=== PATIENT | female | born 1950 | race Hispanic/Latino ===

== ENCOUNTER 2017-12-08 13:18 | Outpatient (RCR) | payer BC | END 2018-01-02 | LOC: ST 13:18 | PROVIDERS: ATTEND Specialist | DX: R47.1 Dysarthria and anarthria (principal); R13.13 Dysphagia, pharyngeal phase | CPT/HCPCS: 92522 ==

== ENCOUNTER → 2018-07-24 | Day surgery (SDC) | payer MEDICARE ==
[~2018-07-24] MED LIST: AMLODIPINE BESY10 MG PO; ATORVASTATIN CA10 MG PO; ECOTRIN81 MG PO; FENTANYL CITRATE/PF 100MCG/2 ML INJ ONE; METFORMIN HCL500 MG PO; METOPROLOL SUCC50 MG PO; MIDAZOLAM HCL 2 MG/2 ML VIAL ONE; OR PHACO EYE KIT ONE; OS-CAL 500+D T1 EACH PO; PREOP PHACO EYE KIT ONE
--- OUTSIDE RECORDS SUMMARY | 2018-07-24 09:36 | XMS REPORT | Encounter Summary ---
Author Organization Unknown Address [address] [place] [address] Phone [phone] Care Team Providers Care Carton Machine Operator Name Role Phone Dr. Mary Gregg 3 [phone] Mary Gregg MD 3 [phone] Too Corona MD 82 [phone] Elijah Quinteros MD 110 [phone] Dangelo Wolfe MD 111 [phone] Dangelo Linares DPM 120 [phone] Stewart Monroy MD 129 [phone] Reason for Visit diabetic foot exam; pre-op evaluation Instructions 1. Pre-surgery evaluation electrocardiogram CBC w/ auto diff 2. Depression screening learning about depression 3. Screening mammography MAMMO, screening, digital, bilateral - PLEASE SCHEDULE & CONTACT OUR PATIENT. THANK YOU mammogram: about this test 4. Screening for malignant neoplasm of colon fecal occult blood, stool colonoscopy referral - Please schedule & contact our patient. thank you/FX RESULTS TO [phone] Thank you 5. Angina pectoris 6. Peripheral vascular disease 7. Type 2 diabetes mellitus 8. Depressive disorder Discussion Note: None recorded. Plan of Care Reminders Provider Appointments Est Patient 09/25/2018 8:15AM Nick Luis MD Lab Fecal Occult Blood, Stool 07/03/[address] [facility] Laboratory CBC W/ Auto Diff 07/03/[address] [facility] Laboratory Referral Colonoscopy Referral 07/03/2018 Ankit Saenz MD Procedures None recorded. Surgeries None recorded. Imaging MAMMO, Screening, Digital, Bilateral 07/03/2018 [facility] Electrocardiogram 07/03/[address] [facility] ([facility] [place] Medications Name Start Date amlodipine 10 mg tablet Take 1 tablet every day by oral route. atorvastatin 10 mg tablet TAKE 1 TABLET BY MOUTH EVERY DAY calcium TAKE ONE TABLET BY MOUTH ONCE A DAY Longs Adult Low Strength ASA 81 mg tablet,delayed release Take 1 tablet every day by oral route. metformin 500 mg tablet TAKE 1 TABLET BY MOUTH TWICE DAILY metoprolol succinate ER 50 mg tablet,extended release 24 hr Take 1 tablet every day by oral route. Medications Administered None recorded. Vitals Height Weight BMI Blood Pressure 5 ft 1 in 158.6 lbs 30 kg/m2 136/70 mm[Hg] Lab Results None recorded. Allergies Code Code System Name Reaction Severity Status Onset 2670 RxNorm Codeine Active 10/17/2017 Problems Name Status Onset Date Source Dural Arteriovenous Malformation Active 10/17/2017 External Type 2 Diabetes Mellitus Active 10/18/2017 External Essential Hypertension Active 10/18/2017 Depressive Disorder Active 11/13/2017 History of Cerebrovascular Accident Active 11/13/2017 Procedures Date Name Performed by 06/05/2010 Knee Surgery Information not available 06/05/1985 Partial Hysterectomy Information not available Other Information not available Tonsilectomy/adenoids Information not available 07/03/2018 MAMMO, Screening, Digital, Bilateral [facility] [address] [place] [address] ([facility]) 07/03/2018 Electrocardiogram [facility] ([facility]) [address] [address] ([address]) Vaccine List Vaccine Type influenza, high dose seasonal 04/03/20180.5 mL pneumococcal conjugate PCV 13 04/03/20180.5 mL Social History Smoking Status Never Smoker Past Encounters 07/03/2018 Pre-surgery Evaluation; Depression Screening; Screening Mammography; Screening for Malignant Neoplasm of Colon; Angina Pectoris; Peripheral Vascular Disease; Type 2 Diabetes Mellitus; Depressive Disorder Nick Luis MD: [id number] [place] [address], Ph. History of Present Illness Note:Coming for preoperative evaluation for bilateral cataract surgery. Hx of DM last a1c 6.7 (stable). No new concerns. Review of Systems Comprehensive General Adult ROS Reported By: Patient Constitutional: Constitutional: no fever, no night sweats, no significant weight gain, no significant weight loss, no exercise intolerance Eyes: Eyes: no dry eyes, no irritation, vision change ENMT: Ears: no difficulty hearing, no ear pain. Nose: no frequent nosebleeds, no nose problems, no sinus problems. Mouth/Throat: no sore throat, no bleeding gums, no snoring, no dry mouth, no mouth ulcers, no oral abnormalities, no teeth problems Cardiovascular: Cardiovascular: no chest pain, no arm pain on exertion, no shortness of breath when walking, no shortness of breath when lying down, no palpitations, no known heart murmur, no lightheadedness Respiratory: Respiratory: no cough, no wheezing, no shortness of breath, no coughing up blood, no sleep apnea Gastrointestinal: Gastrointestinal: no abdominal pain, no nausea, no vomiting, no constipation, normal appetite, no diarrhea, not vomiting blood, no dyspepsia, no GERD Genitourinary: Genitourinary: no incontinence, no difficulty urinating, no hematuria, no increased frequency Musculoskeletal: Musculoskeletal: no muscle aches, no muscle weakness, no arthralgias/joint pain, no back pain, no swelling in the extremities Integumentary: Skin: no abnormal mole, no jaundice, no rashes, no laceration Neurologic: Neurologic: no loss of consciousness, no weakness, no numbness, no seizures, no dizziness, no migraines, no headaches, no tremor Psychiatric: Psych: no depression, no sleep disturbances, feeling safe in a relationship, no alcohol abuse, no anxiety, no hallucinations, no suicidal thoughts Endocrine: Endocrine: no fatigue Hematologic/Lymphatic: Hematologic/Lymphatic no swollen glands, no bruising, no excessive bleeding Allergic/Immunologic: Allergy/Immunologic: no runny nose, no sinus pressure, no itching, no hives, no frequent sneezing Physical Exam General Adult Exam (male) Reported By: Patient Constitutional: General Appearance: healthy-appearing, obese. Level of Distress: NAD. Ambulation: ambulating normally Psychiatric: Insight: good judgement. Mental Status: active and alert, normal mood, normal affect. Orientation: to time, to place, to person. Memory: recent memory normal, remote memory normal Head: Head: normocephalic, atraumatic Eyes: Lids and Conjunctivae: non-injected, no discharge. Pupils: PERRLA. EOM: EOMI. Sclerae: non-icteric ENMT: Ears: TMs clear. Nose: no sinus tenderness. Lips, Teeth, and Gums: no mouth or lip ulcers. Oropharynx: moist mucous membranes Neck: Neck: supple, trachea midline. Thyroid: no enlargement, non-tender Lungs: Auscultation: breath sounds normal Cardiovascular: Heart Auscultation: RRR, normal S1, normal S2, no murmurs. Neck vessels: no carotid bruits. Pulses including femoral / pedal: normal throughout Neurologic: Gait and Station: normal gait. Cranial Nerves: grossly intact Skin: Inspection and palpation: no rash, no lesions
--- OUTSIDE RECORDS SUMMARY | 2018-07-24 09:36 | XMS REPORT | Clinical Summary ---
Author Author [facility] Organization [facility] Address Unknown Phone Unavailable Care Team Providers Care Systems Integration Engineer Name Role Phone DominguezRambo PCP Allergies Comments Active Allergy Reactions Severity Noted Date Heart beat changes Codeine 10/17/2017 Medications End Date Status Medication Sig Dispensed Refills Start Date Active amLODIPine (NORVASC) 10 amlodipine 10 0 mg tablet mg tablet Take 1 tablet every day by oral route. Active atorvastatin (LIPITOR) 10 atorvastatin 0 MG tablet 10 mg tablet TAKE 1 TABLET BY MOUTH EVERY DAY Active calcium carbonate TAKE ONE 0 (CALCIUM 500 ORAL) TABLET BY MOUTH ONCE A DAY Active metoprolol succinate XL Take 1 tablet 0 (TOPROL-XL) 50 mg 24 hr every day by tablet oral route. Active metFORMIN (GLUCOPHAGE) metformin 500 0 500 mg tablet mg tablet TAKE 1 TABLET BY MOUTH TWICE DAILY 10/17/2017 Discontinued amLODIPine (NORVASC) 10 Take 1 tablet 0 mg tablet every day by oral route. 10/17/2017 Discontinued atorvastatin (LIPITOR) 10 TAKE 1 TABLET 0 MG tablet BY MOUTH EVERY DAY 10/17/2017 Discontinued calcium carbonate calcium 0 (CALCIUM 500 ORAL) TAKE ONE TABLET BY MOUTH ONCE A DAY 10/17/2017 Discontinued metoprolol succinate XL metoprolol 0 (TOPROL-XL) 50 mg 24 hr succinate ER tablet 50 mg tablet,extend ed release 24 hr Take 1 tablet every day by oral route. 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 Encounters Care Team Description Date Type Specialty Jhon Carlton MD Bhardwaj, Emerson Hargrove MD Dural arteriovenous fistula (Primary Dx); Arteriovenous fistula, acquired; Type 2 diabetes mellitus with hyperglycemia, without long-term current use of insulin 10/17/2017 Hospital Neurosurgery - Encounter 10/19/2017 Morteza Ulrich MD C-C fistula 10/17/2017 Hospital Radiology Encounter Lalo Oliveira MD 10/17/2017 Anesthesia Radiology Event Jhon Carlton MD Arteriovenous fistula, acquired (Primary Dx) 10/17/2017 Transcribe Radiology Orders Rhea Stacy MD 10/13/2017 Anesthesia Radiology Event Morteza Ulrich MD 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 Hospital Radiology Encounter Morteza Ulrich MD Carotid-cavernous fistula (Primary Dx) 10/11/2017 Transcribe Radiology Orders Adeel Pike, DO Pain in right eye 10/06/2017 Hospital Radiology Encounter Adeel Pike, DO Pain in right eye (Primary Dx) 10/06/2017 Transcribe Access Orders after 07/23/2017 Social History Date Tobacco Use Types Packs/Day Years Used Never Smoker Smokeless Tobacco: Never Used Alcohol Use Drinks/Week oz/Week Comments Yes occasionally Sex Assigned at Date Recorded Not on file Industry Job Start Date Occupation Not on file Not on file Not on file Travel End Travel History Travel Start No recent travel history available. Last Filed Vital Signs Time Taken Vital Sign Reading 10/19/2017 12:39 PM CDT Blood Pressure 156/69 10/19/2017 12:39 PM CDT Pulse 58 10/19/2017 12:39 PM CDT Temperature 36.4 C (97.6 F) 10/19/2017 12:39 PM CDT Respiratory Rate 18 10/19/2017 12:39 PM CDT Oxygen Saturation 95% - Inhaled Oxygen - Concentration 10/17/2017 11:22 AM CDT Weight 76.2 kg (168 lb) 10/17/2017 11:22 AM CDT Height 154.9 cm (5' 1") 10/17/2017 11:22 AM CDT Body Mass Index 31.74 Plan of Treatment Health Maintenance Due Date Last Done Comments DIABETIC RETINAL EYE EXAM 1952 DIABETIC FOOT EXAM 1962 URINE MICROALBUMIN 1962 CERVICAL CANCER SCREENING 1973 BREAST CANCER SCREENING 2002 COLON CANCER SCREENING 2002 SHINGLES VACCINES (1 of 2002 2) PNEUMOCOCCAL 2017 POLYSACCHARIDE VACCINE AGE 65 AND OVER PNEUMOCOCCAL-13 2017 INFLUENZA VACCINE 01/03/2018 Implants Device Identifier Shelf Expiration Date Model / Serial / Lot Implanted Type Area Manufactur er 08/02/2018 [id number] / / [id number] Device Vasclr Clsr Vasoactive Cardiovasc N/A: N/A Intstnl Peptd 6fr Angio-Seal - ular [id number] Implants Implanted: 10/13/2017 (Quantity not on file) 08/02/2018 [id number] / / [id number] Device Vasclr Clsr Vasoactive Cardiovasc N/A: N/A Intstnl Peptd 6fr Angio-Seal - ular [id number] Implants Implanted: 10/17/2017 (Quantity not on file) [id number] / / Catheter Angio Dentistry Teacher Ii 5fr 100cm Surgical N/A: N/A [facility] [place] - Implants; PERIPHERAL [id number] Expanders; INTERVENTI Implanted: 10/13/2017 (Quantity not Extenders; ON on file) Surgical VASCULAR Wires FABIO [id number] / / Catheter Thrmbtmy Neuron Max 088 Surgical N/A: N/A PENUMBRA Str 6fr 80x4cm - [id number] Implants; INC Implanted: 10/17/2017 (Quantity not Expanders; on file) Extenders; Surgical Wires [id number] / / Catheter Angiography Diag Barnh Surgical N/A: N/A [facility] Torque Dentistry Teacher Ii 5fr 100cm - Implants; PERIPHERAL [id number] Expanders; INTERVENTI Implanted: 10/17/2017 (Quantity not Extenders; ON on file) Surgical VASCULAR Wires FABIO [id number] / / Catheter Neurvas [place] 10 1lmn Surgical N/A: N/A [employer] Renfrcd 2.1-1.7fr Micr - [id number] Implants; [place] - Implanted: 10/17/2017 (Quantity not Expanders; VASCULAR on file) Extenders; Surgical Wires FC 12 30 3D / / Coil Axium [id number] Detachable Vascular N/A: N/A [employer] (Frame) 12 X 30 - [id number] Coil [place] - Implanted: 10/17/2017 (Quantity not VASCULAR on file) FC 10 40 3D / / Coil Axium [id number] Detachable Vascular N/A: N/A [employer] (Frame) 10 X 40 - [id number] Coil [place] - Implanted: 10/17/2017 (Quantity not VASCULAR on file) Procedures Comments Procedure Name Priority Date/Time Associated Diagnosis POC GLUCOSE Routine 10/19/2017 1:44 PM CDT POC GLUCOSE Routine 10/19/2017 7:39 AM CDT POC GLUCOSE Routine 10/19/2017 12:13 AM CDT POC GLUCOSE Routine 10/18/2017 7:33 PM CDT POC GLUCOSE Routine 10/18/2017 3:38 PM CDT POC GLUCOSE Routine 10/18/2017 11:34 AM CDT POC GLUCOSE Routine 10/18/2017 7:25 AM CDT POC GLUCOSE Routine 10/18/2017 4:35 AM CDT ZZESTIMATED GFR Routine 10/18/2017 12:44 AM CDT IONIZED CALCIUM Routine 10/18/2017 12:44 AM CDT BASIC METABOLIC PANEL Routine 10/18/2017 12:44 AM CDT PHOSPHORUS LEVEL Routine 10/18/2017 12:44 AM CDT MAGNESIUM LEVEL Routine 10/18/2017 12:44 AM CDT HC COMPLETE BLD COUNT Routine 10/18/2017 W/AUTO DIFF 12:35 AM CDT POC GLUCOSE Routine 10/18/2017 12:04 AM CDT POC GLUCOSE Routine 10/17/2017 10:35 PM CDT POC GLUCOSE Routine 10/17/2017 8:53 PM CDT IR ANGIOGRAM CEREBRAL Routine 10/17/2017 C-C fistula RIGHT 4:41 PM CDT IR 3D RECON SLICES Routine 10/17/2017 SNAPSHOTS RDMPS 4:40 PM CDT IR EMBOLIZATION ARTERIAL Routine 10/17/2017 Arteriovenous fistula, NEURO 4:40 PM CDT acquired ARTERIAL LINE Routine 10/17/2017 1:30 PM CDT Procedure Note - Lalo Oliveira MD - 10/17/2017 1:30 PM CDT Arterial line Performed by: LALO OLIVEIRA Authorized by: LALO OLIVEIRA Patient Location: OR Start Time: 10/17/2017 1:30 PM End Time: 10/17/2017 1:30 PM Staff: Hectoro kenia: LALO OLIVEIRA Performed by: Jaycob aquino Pre-proced ure: patient identified , IV checked, site and side verified, risks and benefits discussed, procedure verified, surgical consent complete, patient position confirmed, monitors and equipment checked and pre-op evaluation complete MSBT: antiseptic used, all elements of maximal sterile barrier technique followed, hand hygiene performed, cap/gown used by other personnel and solutions labeled Indication s: Indication s: hemodynami c monitoring Anesthesia : Anesthesia : General Procedure Details: Arterial Line placement: Placed post induction Line placement site: Radial Line placement side: Left Arterial line gauge: 20 G Number of attempts: 1 Ultrasound guidance used: No Post-proce dure: Post-proce dure: Sterile dressing applied Post procedure circulatio n, sensation, movement: Normal Patient tolerance: Patient tolerated the procedure well with no immediate complicati ons GA AN ELECTIVE Routine 10/17/2017 ENDOTRACHEAL AIRWAY 1:29 PM CDT Procedure Note - Lalo Oliveira MD - 10/17/2017 1:29 PM CDT Airway Date/Time: 10/17/2017 1:29 PM Performed by: LALO OLIVEIRA Authorized by: LALO OLIVEIRA Location: OR Urgency: Elective Difficult Airway: No Anesthesio logist: LALO OLIVEIRA Performed by: anesthesimikala aquino Preoxygena ludivina with 100% O2: Yes C-spine Precaution s Maintained Throughout : Yes Mask Ventilatio n: Easy mask Final Airway Type: Endotrache al airway Final Endotrache al Airway: ETT Cuffed: Yes Technique Used: Direct laryngosco py Devices/Me thods Used in Placement: Intubatin g stylet Insertion Site: Oral Blade Type: Servin Laryngosco pe Blade/Vide olaryngosc ope Blade Size: 2 ETT Size (mm): 7.0 Cuff at minimum occlusion pressure: Yes Measured from: Teeth ETT to Teeth (cm): 21 Placement Verified by: CO2 detection, direct visualizat ion and equal breath sounds Laryngosco pic view: Grade I - full view of glottis Rapid Sequence Induction (RSI): No Modified RSI: No Number of Attempts at Approach: 1 TOOTH PROTECTOR. DENTITION UNCHANGED. POC GLUCOSE Routine 10/17/2017 10:46 AM CDT POC GLUCOSE Routine 10/13/2017 1:02 PM CDT IR 3D RECON SLICES Routine 10/13/2017 SNAPSHOTS RDMPS 12:55 PM CDT IR ANGIOGRAM CEREBRAL Routine 10/13/2017 Carotid-cavernous fistula BILATERAL 12:55 PM CDT GA AN ELECTIVE Routine 10/13/2017 ENDOTRACHEAL AIRWAY 11:35 AM CDT Procedure Note - Rhea Stacy MD - 10/13/2017 11:35 AM CDT Airway Date/Time: 10/13/2017 11:26 AM Performed by: RHEA STACY Authorized by: RHEA STACY Location: OR Urgency: Elective Difficult Airway: No Preoxygena ludivina with 100% O2: Yes C-spine Precaution s Maintained Throughout : Yes Mask Ventilatio n: Assisted mask Final Airway Type: Endotrache al airway Final Endotrache al Airway: ETT Cuffed: Yes Technique Used: Direct laryngosco py Devices/Me thods Used in Placement: Intubatin g stylet Insertion Site: Oral Blade Type: Servin Laryngosco pe Blade/Vide olaryngosc ope Blade Size: 2 ETT Size (mm): 7.0 Cuff at minimum occlusion pressure: Yes Measured from: Lips ETT to Lips (cm): 23 Placement Verified by: CO2 detection, direct visualizat ion and equal breath sounds Laryngosco pic view: Grade IIa - partial view of glottis Rapid Sequence Induction (RSI): No Modified RSI: No Number of Attempts at Approach: 1 POC GLUCOSE Routine 10/13/2017 9:[address] ANGIOGRAM HEAD W WO Routine 10/06/2017 Pain in right eye CONTRAST 6:00 PM CDT POC CREATININE Routine 10/06/2017 5:33 PM CDT after 07/23/2017 Results * POC glucose (10/19/2017 1:44 PM CDT) Only the most recent of 14 results within the time period is included. POC glucose 152 (H) 65 - 99 mg/dL [facility] DEPARTMENT OF Comment: [facility] Notified RN GENOMIC MEDICINE Meter ID: [id number] Clerk Of Superior Court: Jennifer Berry Performing Organization Address [facility] Phone Number [facility] [place] [address] PATHOLOGY AND GENOMIC MEDICINE * Estimated GFR (10/18/2017 12:44 AM CDT) GFR Non Af Amer >90 mL/min/1.73 m2 [facility] DEPARTMENT OF PATHOLOGY AND GENOMIC MEDICINE GFR Af Amer >90 mL/min/1.73 m2 [facility] DEPARTMENT OF Comment: PATHOLOGY AND Chronic kidney disease: <60 GENOMIC MEDICINE mL/min/1.73m2 Kidney failure: <15 mL/min/1.73m2 The estimated GFR is calculated from the IDMS-traceable Modification of Diet in Renal Disease Equation. The accuracy of the calculation is poor when the creatinine is normal. Calculated values >90 mL/min/1.73m2 are not reported. This equation has not been validated in children (<18 years), women, the elderly (>70 years), or ethnic groups other than Caucasians and Americans. Specimen Plasma specimen Performing Organization Address [facility] Phone Number [facility] DEPARTMENT OF [address] [place] [address] PATHOLOGY AND [employer] MEDICINE * Phosphorus level (10/18/2017 12:44 AM CDT) Phosphorus 3.2 2.4 - 4.5 mg/dL [facility] DEPARTMENT OF PATHOLOGY AND GENOMIC MEDICINE Specimen Plasma specimen Performing Organization Address City/[facility] [place] [address] PATHOLOGY AND GENOMIC MEDICINE * Magnesium level (10/18/2017 12:44 AM CDT) Magnesium 1.8 1.6 - 2.4 mg/dL [facility] DEPARTMENT OF PATHOLOGY AND GENOMIC MEDICINE Specimen Plasma specimen Performing Organization Address [facility] [place] [address] PATHOLOGY AND GENOMIC MEDICINE * Ionized calcium (10/18/2017 12:44 AM CDT) pH 7.62 [facility] DEPARTMENT OF PATHOLOGY AND GENOMIC MEDICINE Ionized calcium 1.06 (L) 1.11 - 1.32 mmol/L [facility] DEPARTMENT OF PATHOLOGY AND GENOMIC MEDICINE Specimen Plasma specimen Performing Organization Address [facility] [place] [address] PATHOLOGY AND GENOMIC MEDICINE * Basic metabolic panel (10/18/2017 12:44 AM CDT) Sodium 140 135 - 148 mEq/L [facility] DEPARTMENT OF PATHOLOGY AND GENOMIC MEDICINE Potassium 3.6 3.5 - 5.0 mEq/L [facility] DEPARTMENT OF PATHOLOGY AND GENOMIC MEDICINE Chloride 105 98 - 112 mEq/L [facility] DEPARTMENT OF PATHOLOGY AND GENOMIC MEDICINE CO2 21 (L) 24 - 31 mEq/L [facility] DEPARTMENT OF PATHOLOGY AND GENOMIC MEDICINE Anion gap 14@ANIO 7 - 15 mEq/L [facility] DEPARTMENT OF PATHOLOGY AND GENOMIC MEDICINE BUN 6 (L) 8 - 23 mg/dL [facility] DEPARTMENT OF PATHOLOGY AND GENOMIC MEDICINE Creatinine 0.5 0.5 - 0.9 mg/dL [facility] DEPARTMENT OF PATHOLOGY AND GENOMIC MEDICINE Glucose 203 (H) 65 - 99 mg/dL [facility] DEPARTMENT OF PATHOLOGY AND GENOMIC MEDICINE Calcium 8.5 (L) 8.8 - 10.2 mg/dL [facility] DEPARTMENT OF PATHOLOGY AND GENOMIC MEDICINE Specimen Plasma specimen Performing Organization Address [facility] [place] [address] PATHOLOGY AND GENOMIC MEDICINE * CBC with platelet and differential (10/18/2017 12:35 AM CDT) WBC 9.59 4.50 - 11.00 k/uL [facility] DEPARTMENT OF PATHOLOGY AND GENOMIC MEDICINE RBC 4.74 4.20 - 5.50 m/uL [facility] DEPARTMENT OF PATHOLOGY AND GENOMIC MEDICINE HGB 13.8 12.0 - 16.0 g/dL [facility] DEPARTMENT OF PATHOLOGY AND GENOMIC MEDICINE HCT 40.8 37.0 - 47.0 % [facility] DEPARTMENT OF PATHOLOGY AND GENOMIC MEDICINE MCV 86.1 82.0 - 100.0 fL [facility] DEPARTMENT OF PATHOLOGY AND GENOMIC MEDICINE MCH 29.1 27.0 - 34.0 pg [facility] DEPARTMENT OF PATHOLOGY AND GENOMIC MEDICINE MCHC 33.8 31.0 - 37.0 g/dL [facility] DEPARTMENT OF PATHOLOGY AND GENOMIC MEDICINE RDW - SD 41.1 37.0 - 55.0 fL [facility] DEPARTMENT OF PATHOLOGY AND GENOMIC MEDICINE MPV 10.1 8.8 - 13.2 fL [facility] DEPARTMENT OF PATHOLOGY AND GENOMIC MEDICINE Platelet count 247 150 - 400 k/uL [facility] DEPARTMENT OF PATHOLOGY AND GENOMIC MEDICINE Nucleated RBC 0.00 /100 WBC [facility] DEPARTMENT OF PATHOLOGY AND GENOMIC MEDICINE Neutrophils 92.3 (H) 39.0 - 69.0 % [facility] DEPARTMENT OF PATHOLOGY AND GENOMIC MEDICINE Lymphocytes 6.8 (L) 25.0 - 45.0 % [facility] DEPARTMENT OF PATHOLOGY AND GENOMIC MEDICINE Monocytes 0.4 0.0 - 10.0 % [facility] DEPARTMENT OF PATHOLOGY AND GENOMIC MEDICINE Eosinophils 0.0 0.0 - 5.0 % [facility] DEPARTMENT OF PATHOLOGY AND GENOMIC MEDICINE Basophils 0.1 0.0 - 1.0 % [facility] DEPARTMENT OF PATHOLOGY AND GENOMIC MEDICINE Immature granulocytes 0.4Comment: "Immature 0.0 - 1.0 % [facility] DEPARTMENT OF granulocytes" (promyelocytes, PATHOLOGY AND myelocytes, metamyelocytes) [facility] Specimen Blood Performing Organization Address City/State/Zipcode Phone Number [facility] DEPARTMENT OF [address] [place] [address] PATHOLOGY AND GENOMIC MEDICINE * IR Angiogram Cerebral Right (10/17/2017 4:41 PM CDT) Narrative Performed At CEREBRAL DIGITAL SUBTRACTION ANGIOGRAPHY (DSA) RADIANT RADIATION EXPOSURE: 5,844 mGy (total radiation exposure for diagnostic and embolization procedures). COMPARISON: Brain CTA dated October 06, 2017; diagnostic cerebral DSA October 13, 2017. CLINICAL HISTORY: 66-year-old female with right ocular pain, proptosis and chemosis. Patient underwent brain CTA on October 06, 2017, showing asymmetric enlargement of the superior ophthalmic vein on the right side and asymmetric filling of the right cavernous sinus. The patient underwent diagnostic cerebral angiography on October 13, 2017. The patient is here today for embolization. TECHNIQUE: The risk and benefits of the procedure were carefully discussed with and explained to the patient. The risks of the procedure include, but are not limited to, infection, hematoma, damage to any catheterized vessel, renal failure, stroke, worsening of the patient's neurological condition and contrast reaction. Informed consent was obtained. Under general anesthesia provided by the Anesthesiology service and utilizing a left femoral percutaneous approach, using micropuncture technique, the following procedures were performed: 1. Right common carotid artery injection, neck examination, in biplane projections. 2. Selective right internal carotid injection, cerebral examination, in biplane, obliques and magnification views. 3. Selective right external carotid injection, cerebral examination, in biplane projections. 4. Selective injection of the right occipital artery in biplane projections. 5. Selective injection of the right ascending pharyngeal artery, in biplane projections. 6. Rotational angiography (Cyndi CT) with selective injection of the right ascending pharyngeal artery, followed by 3-D and multiplanar reconstructions using a separate, dedicated workstation. 7. Rotational angiography (3D imaging) with selective injection of the right ascending pharyngeal artery, followed by 3-D and multiplanar reconstructions using a separate, dedicated workstation. FINDINGS: 1. Selective right common carotid injection, neck examination, shows a patent carotid bifurcation, without focal stenosis. There is a dural AV fistula supplied by the neuromeningeal trunk of the ascending pharyngeal artery. The shunt is located in the right hypoglossal canal. There is retrograde filling of the right sphenoparietal sinus, cavernous sinus and superior ophthalmic vein. 2. Selective right internal carotid injection, cerebral examination, shows normal antegrade flow intracranially into the anterior and middle cerebral arteries. There is some cross-filling through the anterior communicating artery. No arteriovenous shunting is seen in this injection. No aneurysm or focal stenosis is identified.The venous phase is within normal limits. 3. Selective right external carotid injection, head examination, with the tip of the catheter just distal to the takeoff of the ascending pharyngeal artery, shows faint opacification of the dural AV fistula, as well as retrograde filling of the sphenoparietal sinus, cavernous sinus and superior ophthalmic vein. 4. Selective right occipital artery injection, head examination, shows small contribution to the AV fistula by transmastoid branches of the occipital artery. 5. Selective injection of the right ascending pharyngeal artery, head examination, centered over the skull base, shows a dural AV fistula supplied by branches of the neural meningeal trunk, centered in the hypoglossal canal, with retrograde filling of the sphenoparietal sinus, cavernous sinus, superior ophthalmic vein and orbital vein on the right side. The fistulous pouch measures approximately 9 mm in height x 14 mm in AP diameter. 6. Cyndi CT was performed with selective injection of the right ascending pharyngeal artery. Reconstructed images show the fistulous pouch located within the right hypoglossal canal. The images obtained from the Cyndi CT were used to delineate the venous anatomy in this region, for catheter navigation. 7. 3D imaging was also performed with selective injection of the right ascending pharyngeal artery. The reconstructed images depict in better detail the venous anatomy in the region of the right hypoglossal canal. Following the diagnostic portion of the examination, which was used for operative/embolization planning, the embolization procedure was commenced. This is dictated under a separate report. IMPRESSION: 1. 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 2. No immediate complications were encountered. [facility]-[id number] Procedure Note [facility], Radiology Results Incoming - 10/17/2017 5:56 PM CDT CEREBRAL DIGITAL SUBTRACTION ANGIOGRAPHY (DSA) RADIATION EXPOSURE: 5,844 mGy (total radiation exposure for diagnostic and embolization procedures). COMPARISON: Brain CTA dated October 06, 2017; diagnostic cerebral DSA October 13, 2017. CLINICAL HISTORY: 66-year-old female with right ocular pain, proptosis and chemosis. Patient underwent brain CTA on October 06, 2017, showing asymmetric enlargement of the superior ophthalmic vein on the right side and asymmetric filling of the right cavernous sinus. The patient underwent diagnostic cerebral angiography on October 13, 2017. The patient is here today for embolization. TECHNIQUE: The risk and benefits of the procedure were carefully discussed with and explained to the patient. The risks of the procedure include, but are not limited to, infection, hematoma, damage to any catheterized vessel, renal failure, stroke, worsening of the patient's neurological condition and contrast reaction. Informed consent was obtained. Under general anesthesia provided by the Anesthesiology service and utilizing a left femoral percutaneous approach, using micropuncture technique, the following procedures were performed: 1. Right common carotid artery injection, neck examination, in biplane projections. 2. Selective right internal carotid injection, cerebral examination, in biplane, obliques and magnification views. 3. Selective right external carotid injection, cerebral examination, in biplane projections. 4. Selective injection of the right occipital artery in biplane projections. 5. Selective injection of the right ascending pharyngeal artery, in biplane projections. 6. Rotational angiography (Cyndi CT) with selective injection of the right ascending pharyngeal artery, followed by 3-D and multiplanar reconstructions using a separate, dedicated workstation. 7. Rotational angiography (3D imaging) with selective injection of the right ascending pharyngeal artery, followed by 3-D and multiplanar reconstructions using a separate, dedicated workstation. FINDINGS: 1. Selective right common carotid injection, neck examination, shows a patent carotid bifurcation, without focal stenosis. There is a dural AV fistula supplied by the neuromeningeal trunk of the ascending pharyngeal artery. The shunt is located in the right hypoglossal canal. There is retrograde filling of the right sphenoparietal sinus, cavernous sinus and superior ophthalmic vein. 2. Selective right internal carotid injection, cerebral examination, shows normal antegrade flow intracranially into the anterior and middle cerebral arteries. There is some cross-filling through the anterior communicating artery. No arteriovenous shunting is seen in this injection. No aneurysm or focal stenosis is identified. The venous phase is within normal limits. 3. Selective right external carotid injection, head examination, with the tip of the catheter just distal to the takeoff of the ascending pharyngeal artery, shows faint opacification of the dural AV fistula, as well as retrograde filling of the sphenoparietal sinus, cavernous sinus and superior ophthalmic vein. 4. Selective right occipital artery injection, head examination, shows small contribution to the AV fistula by transmastoid branches of the occipital artery. 5. Selective injection of the right ascending pharyngeal artery, head examination, centered over the skull base, shows a dural AV fistula supplied by branches of the neural meningeal trunk, centered in the hypoglossal canal, with retrograde filling of the sphenoparietal sinus, cavernous sinus, superior ophthalmic vein and orbital vein on the right side. The fistulous pouch measures approximately 9 mm in height x 14 mm in AP diameter. 6. Cyndi CT was performed with selective injection of the right ascending pharyngeal artery. Reconstructed images show the fistulous pouch located within the right hypoglossal canal. The images obtained from the Cyndi CT were used to delineate the venous anatomy in this region, for catheter navigation. 7. 3D imaging was also performed with selective injection of the right ascending pharyngeal artery. The reconstructed images depict in better detail the venous anatomy in the region of the right hypoglossal canal. Following the diagnostic portion of the examination, which was used for operative/embolization planning, the embolization procedure was commenced. This is dictated under a separate report. IMPRESSION: 1. 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 2. No immediate complications were encountered. [id number] Performing Organization Address City/[facility] Cent[facility]ode Phone Number [facility] [address] [place] [address] * IR 3D Recon Slices Snapshots RDMPS (10/17/2017 4:40 PM CDT) Only the most recent of 2 results within the time period is included. Narrative Performed At Non-Reportable/No report needed. [facility] Performing Organization Address City/[facility] Cent[facility]ome Phone Number [facility] [address] [place] [address] * IR Embolization Neurovascular (10/17/2017 4:40 PM CDT) Narrative Performed At EXAMINATION: Embolization OF A right hypoglossal canal Dural arteriovenous [facility] fistula. 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 The patient is here for endovascular treatment after diagnostic cerebral angiogram performed by Dr. Henrique Archer. RADIATION EXPOSURE: 5,844 mGy (total radiation exposure for diagnostic and embolization procedures). COMPARISON: Brain CTA dated October 06, 2017; diagnostic cerebral DSA October 13, 2017. CLINICAL HISTORY: 66-year-old female with right ocular pain, proptosis and chemosis. Patient underwent brain CTA on October 06, 2017, showing asymmetric enlargement of the superior ophthalmic vein on the right side and asymmetric filling of the right cavernous sinus. The patient underwent diagnostic cerebral angiography on October 13, 2017. The patient is here today for embolization. TECHNIQUE: The risk and benefits of the procedure were carefully discussed with and explained to the patient. The risks of the procedure include, but are not limited to, infection, hematoma, damage to any catheterized vessel, renal failure, stroke, worsening of the patient's neurological condition and contrast reaction. Informed consent was obtained. Under general anesthesia provided by the Anesthesiology service and utilizing a left femoral percutaneous approach, using micropuncture technique, after the diagnostic arteriogram performed by Dr. Henrique Archer utilizing a right jugular percutaneous approach the following procedureswere performed. 1. Successful endovascular treatment of the right hypoglossal canal dural arteriovenous fistula using transvenous approach and coils and [place] embolization material. 2. Posttreatment Selective right internal carotid injection, cerebral examination, in biplane, obliques and magnification views. 3. Posttreatment Selective right external carotid injection, cerebral examination, in biplane projections. 4. Posttreatment left internal carotid indication headache examination in the AP and oblique some indications views. 5. Post treatment left external carotid injection] hepatopedal examination in biplane obliques and magnification views. 6. Post treatment right vertebral artery injection. Examination with been no recent medications use. 7. Post treatment left vertebral artery injection. Examination with been no recent medications use. 8. Post treatment Rotational angiography (Cyndi CT) without contrast. FINDINGS: After Demonstration of the right hypoglossal canal dural arteriovenous fistula and utilizing a right jugular venousapproach an [place] 10 microcatheter was navigated into the right hypoglossal canal. Cyndi CT with contrast demonstrated correct position of the microcatheter. Subsequently multiple axial coils and [place] 34 embolization material were utilized to completelydevascularize the hypoglossal dural fistula without complications. The posttreatment bilateral internal carotid injection, bilaterally external carotid andbilateral vertebral artery injection head examination demonstrate complete devascularization of the hypoglossal canal dural AVF without residual arteriovenous shunting. The posttreatment diagnostic CT head examination demonstrated only subluxation material at the level of the hypoglossal canal. IMPRESSION: 1. 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 2. Follow-up cerebral arch UM in 6 months is recommended. 3. No complications. [id number] Procedure Note [facility], Radiology Results Incoming - 10/18/2017 5:47 PM CDT EXAMINATION: Embolization OF A right hypoglossal canal Dural arteriovenous fistula. 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 The patient is here for endovascular treatment after diagnostic cerebral angiogram performed by Dr. Henrique Archer. RADIATION EXPOSURE: 5,844 mGy (total radiation exposure for diagnostic and embolization procedures). COMPARISON: Brain CTA dated October 06, 2017; diagnostic cerebral DSA October 13, 2017. CLINICAL HISTORY: 66-year-old female with right ocular pain, proptosis and chemosis. Patient underwent brain CTA on October 06, 2017, showing asymmetric enlargement of the superior ophthalmic vein on the right side and asymmetric filling of the right cavernous sinus. The patient underwent diagnostic cerebral angiography on October 13, 2017. The patient is here today for embolization. TECHNIQUE: The risk and benefits of the procedure were carefully discussed with and explained to the patient. The risks of the procedure include, but are not limited to, infection, hematoma, damage to any catheterized vessel, renal failure, stroke, worsening of the patient's neurological condition and contrast reaction. Informed consent was obtained. Under general anesthesia provided by the Anesthesiology service and utilizing a left femoral percutaneous approach, using micropuncture technique, after the diagnostic arteriogram performed by Dr. Henrique Archer utilizing a right jugular percutaneous approach the following procedures were performed. 1. Successful endovascular treatment of the right hypoglossal canal dural arteriovenous fistula using transvenous approach and coils and [place] embolization material. 2. Posttreatment Selective right internal carotid injection, cerebral examination, in biplane, obliques and magnification views. 3. Posttreatment Selective right external carotid injection, cerebral examination, in biplane projections. 4. Posttreatment left internal carotid indication headache examination in the AP and oblique some indications views. 5. Post treatment left external carotid injection] hepatopedal examination in biplane obliques and magnification views. 6. Post treatment right vertebral artery injection. Examination with been no recent medications use. 7. Post treatment left vertebral artery injection. Examination with been no recent medications use. 8. Post treatment Rotational angiography (Cyndi CT) without contrast. FINDINGS: After Demonstration of the right hypoglossal canal dural arteriovenous fistula and utilizing a right jugular venous approach an [place] 10 microcatheter was navigated into the right hypoglossal canal. Cyndi CT with contrast demonstrated correct position of the microcatheter. Subsequently multiple axial coils and [place] 34 embolization material were utilized to completely devascularize the hypoglossal dural fistula without complications. The posttreatment bilateral internal carotid injection, bilaterally external carotid and bilateral vertebral artery injection head examination demonstrate complete devascularization of the hypoglossal canal dural AVF without residual arteriovenous shunting. The posttreatment diagnostic CT head examination demonstrated only subluxation material at the level of the hypoglossal canal. IMPRESSION: 1. 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 2. Follow-up cerebral arch UM in 6 months is recommended. 3. No complications. [id number] Performing Organization Address City/State/Zipcode Phone Number [facility] [address] [place] [address] * IR Angiogram Cerebral (10/13/2017 12:55 PM CDT) Narrative Performed At CEREBRAL ARTERIOGRAM [facility] FLUORO TIME : 10.1 Minutes RADIATION EXPOSURE: MELINA 2431 mGy COMPARISON: none. CLINICAL HISTORY: 66-year-old female patient with right eye proptosis and chemosis. Patient is here for diagnostic cerebral arteriogram. TECHNIQUE: The risk and benefits of the procedure were explained to the patient. The risks include but are not limited to infection, hematoma, vascular damage, renal failure, stroke, worsening of the neurological condition and contrast reaction. Informed consent was obtained. Under general anesthesia provided by Anesthesiology and utilizing a right femoral percutaneous approach, the following procedures were performed: Right common carotid injection neck examination in biplane projections. Selective right internal carotid injection head examination in biplane, obliques and magnification views. Right external carotid injection head examination in biplane projections. Right external carotid injection head examination dimensional rotational views. Right external carotid injection head examination Cyndi CT. Left common carotid injection neck examination in biplane projections. Selective left internal carotid injection head examination in biplane, obliques and magnification is views. Left external carotid injection head examination in biplane projections. Selective left vertebral artery injection neck examination in biplane projections. Selective left vertebral artery injection head examination in biplane projections. Selective right vertebral artery injection neck examination in biplane projections. Selective right vertebral artery injection head examination in biplane projections. FINDINGS: The right common carotid injection neck examination demonstrate normal bifurcation without evidence of critical stenosis. There is an arteriovenous shunting with visualization of the jugular vein and inferior petrosal sinus. The Right internal carotid injection head examination on the right external carotid injection head examination including the three-dimensional rotational views demonstrate normal antegrade flow into the intracranial circulation without evidence of focal stenosis or aneurysms . There is a type II dural arteriovenous fistula atthe level of the right hypoglossal canal supplied by the neuromeningeal trunk of the right ascending pharyngeal, superior hypophyseal artery and inferolateral trunk of the right internal carotid, right posterior auricular artery and artery of the foramen rotundum. Right posterior auricular artery and artery of the foramen rotundum. The AV shunting is at the level of the hypoglossal foramen with retrograde venous drainage into the inferior petrosal sinus, right cavernous sinus and right superior ophthalmic vein with intraorbital venous hypertension. There is also atrophy drainage into the right jugular vein. Those findings were better demonstrated on the 3-dimensional rotational views and Cyndi CT. The left common carotid injection neck examination demonstrate normal bifurcation without evidence of critical stenosis. The left internal carotid injection head examination demonstrate normal antegrade flow into the intracranial circulation. Filling of the right hypoglossal dural arteriovenous fistula from the cavernous branches of the left internal carotid were identified. The left external carotid injection head examination demonstrate normal branching without evidence of arteriovenous fistula. The left vertebral artery injection neck examination demonstrate normal vertebral artery without stenosis or dissections. The right vertebral artery injection neck examination demonstrate normal vertebral artery without stenosis or dissections. The right vertebral artery injection and left vertebral artery injection head examination demonstrate normal antegrade flow into the intracranial circulation without evidence of focal stenosis or aneurysms. There is filling of the right hypoglossal foramen arteriovenous fistula supplied by the bilateral C3 anastomotic branch of the vertebral arteries. There were no complications during the procedure. At the end of the procedure the femoral sheath was removed and hemostasis was obtained using manual compression and Vascade device. The patient was transferred to PACU without changes in the neurological status. IMPRESSION: 1. Type II Right hypoglossal canal dural arteriovenous fistula 2. Negative foraneurysms or arteriovenous malformations. 3. No complications. [id number] Procedure Note [facility], Radiology Results Incoming - 10/13/2017 5:24 PM CDT CEREBRAL ARTERIOGRAM FLUORO TIME : 10.1 Minutes RADIATION EXPOSURE: MELINA 2431 mGy COMPARISON: none. CLINICAL HISTORY: 66-year-old female patient with right eye proptosis and chemosis. Patient is here for diagnostic cerebral arteriogram. TECHNIQUE: The risk and benefits of the procedure were explained to the patient. The risks include but are not limited to infection, hematoma, vascular damage, renal failure, stroke, worsening of the neurological condition and contrast reaction. Informed consent was obtained. Under general anesthesia provided by Anesthesiology and utilizing a right femoral percutaneous approach, the following procedures were performed: Right common carotid injection neck examination in biplane projections. Selective right internal carotid injection head examination in biplane, obliques and magnification views. Right external carotid injection head examination in biplane projections. Right external carotid injection head examination dimensional rotational views. Right external carotid injection head examination Cyndi CT. Left common carotid injection neck examination in biplane projections. Selective left internal carotid injection head examination in biplane, obliques and magnification is views. Left external carotid injection head examination in biplane projections. Selective left vertebral artery injection neck examination in biplane projections. Selective left vertebral artery injection head examination in biplane projections. Selective right vertebral artery injection neck examination in biplane projections. Selective right vertebral artery injection head examination in biplane projections. FINDINGS: The right common carotid injection neck examination demonstrate normal bifurcation without evidence of critical stenosis. There is an arteriovenous shunting with visualization of the jugular vein and inferior petrosal sinus. The Right internal carotid injection head examination on the right external carotid injection head examination including the three-dimensional rotational views demonstrate normal antegrade flow into the intracranial circulation without evidence of focal stenosis or aneurysms . There is a type II dural arteriovenous fistula at the level of the right hypoglossal canal supplied by the neuromeningeal trunk of the right ascending pharyngeal, superior hypophyseal artery and inferolateral trunk of the right internal carotid, right posterior auricular artery and artery of the foramen rotundum. Right posterior auricular artery and artery of the foramen rotundum. The AV shunting is at the level of the hypoglossal foramen with retrograde venous drainage into the inferior petrosal sinus, right cavernous sinus and right superior ophthalmic vein with intraorbital venous hypertension. There is also atrophy drainage into the right jugular vein. Those findings were better demonstrated on the 3-dimensional rotational views and Cyndi CT. The left common carotid injection neck examination demonstrate normal bifurcation without evidence of critical stenosis. The left internal carotid injection head examination demonstrate normal antegrade flow into the intracranial circulation. Filling of the right hypoglossal dural arteriovenous fistula from the cavernous branches of the left internal carotid were identified. The left external carotid injection head examination demonstrate normal branching without evidence of arteriovenous fistula. The left vertebral artery injection neck examination demonstrate normal vertebral artery without stenosis or dissections. The right vertebral artery injection neck examination demonstrate normal vertebral artery without stenosis or dissections. The right vertebral artery injection and left vertebral artery injection head examination demonstrate normal antegrade flow into the intracranial circulation without evidence of focal stenosis or aneurysms. There is filling of the right hypoglossal foramen arteriovenous fistula supplied by the bilateral C3 anastomotic branch of the vertebral arteries. There were no complications during the procedure. At the end of the procedure the femoral sheath was removed and hemostasis was obtained using manual compression and Vascade device. The patient was transferred to PACU without changes in the neurological status. IMPRESSION: 1. Type II Right hypoglossal canal dural arteriovenous fistula 2. Negative for aneurysms or arteriovenous malformations. 3. No complications. [id number] Performing Organization Address City/State/Zipcode Phone Number [facility] [address] [place] [address] * CTA Head W Wo Contrast (10/06/2017 6:00 PM CDT) Narrative Performed At EXAMINATION: [facility] CLINICAL [facility]ORY: H57.11 Ocular painright eye, H57.11 COMPARISON:None TECHNIQUE:Imaging of the intracranial circulation was obtained from the skull base to the vertex during the arterial phase of enhancement. Postprocessing was performed with MIP multiplanar and 3D reconstructed images.CT imaging was performed with iterative reconstruction technique and/or automated exposure control to reduce radiation dose. FINDINGS: Moderate right-sided proptosis, asymmetric enlargement of the right superior ophthalmic vein, and asymmetric filling of the right cavernous sinus. Mild periorbital and retro-orbital fat stranding. Stretching of the right optic nerve. The major branches of the anterior and posterior arterial circulations of the brain appear patent without evidence of focal stenosis or aneurysm. Mild arteriosclerosis of the V4 segments of the vertebral arteries and cavernous and paraclinoid internal carotid arteries without significant stenosis. Major venous sinuses appear patent. 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 Conventional angiography could be performed for further evaluation and treatment if necessary. Confirmation of report receipt will be tracked in [facility]. [id number] Procedure Note Interface, Radiology Results Incoming - 10/06/2017 6:18 PM CDT EXAMINATION: CT ANGIOGRAM HEAD W WO CONTRAST CLINICAL HISTORY: H57.11 Ocular pain right eye, H57.11 COMPARISON: None TECHNIQUE: Imaging of the intracranial circulation was obtained from the skull base to the vertex during the arterial phase of enhancement. Postprocessing was performed with MIP multiplanar and 3D reconstructed images. CT imaging was performed with iterative reconstruction technique and/or automated exposure control to reduce radiation dose. FINDINGS: Moderate right-sided proptosis, asymmetric enlargement of the right superior ophthalmic vein, and asymmetric filling of the right cavernous sinus. Mild periorbital and retro-orbital fat stranding. Stretching of the right optic nerve. The major branches of the anterior and posterior arterial circulations of the brain appear patent without evidence of focal stenosis or aneurysm. Mild arteriosclerosis of the V4 segments of the vertebral arteries and cavernous and paraclinoid internal carotid arteries without significant stenosis. Major venous sinuses appear patent. 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 Conventional angiography could be performed for further evaluation and treatment if necessary. Confirmation of report receipt will be tracked in [facility]. [id number] Performing Organization Address City/[facility]/Zipcode Phone Number [facility] [address] [place] [address] * POC creatinine (10/06/2017 5:33 PM CDT) POC creatinine 0.9 0.5 - 0.9 mg/dl [facility] DEPARTMENT OF PATHOLOGY AND GENOMIC MEDICINE Specimen Blood Performing Organization Address City/[facility]/Zipcode Phone Number [address] [place] [address] PATHOLOGY AND GENOMIC MEDICINE after 07/23/2017 Insurance Payer Benefit Subscriber ID Type Phone Address Plan / Group BCBS BCBS xxxxxxxxxxxx PPO CHOICE PPO/IM[employer] PPO Advance Directives Patient has advance care planning documents on file. For more information, ghada carvalho contact: Sebastian Fam [address] [facility] [address]
[2018-07-24 12:40] VITALS: BP 120/64
== END | disposition home or self-care (01) ==
LOC: OR 09:33
PROVIDERS: ATTEND Ophthalmology
DX: H25.11 Age-related nuclear cataract, right eye (principal); I10 Essential (primary) hypertension; I25.10 Atherosclerotic heart disease of native coronary artery without angina pectoris; E11.9 Type 2 diabetes mellitus without complications; E78.5 Hyperlipidemia, unspecified; Z88.6 Allergy status to analgesic agent; Z79.84 Long term (current) use of oral hypoglycemic drugs; Z79.82 Long term (current) use of aspirin; Z95.5 Presence of coronary angioplasty implant and graft
CPT/HCPCS: 36415; 66984; 82948; J2250; V2632

== ENCOUNTER → 2018-08-07 | Day surgery (SDC) | payer MEDICARE ==
[~2018-08-07] MED LIST changes: -FENTANYL CITRATE/PF 100MCG/2 ML INJ ONE
--- OUTSIDE RECORDS SUMMARY | 2018-08-07 09:31 | XMS REPORT | Clinical Summary ---
Author Author [facility] Organization [facility] Address Unknown Phone Unavailable Care Team Providers Care Plugger Man Name Role Phone Rambo Dominguez MD PCP Allergies Comments Active Allergy Reactions Severity [...] (Primary Dx) 10/06/2017 Transcribe Access Orders after 08/06/2017 Social History Date Tobacco Use Types Packs/Day [...] 2002 COLON CANCER SCREENING 2002 SHINGLES VACCINES (#1) 2002 65+ PNEUMOCOCCAL VACCINE 2017 (1 of 2 - PCV13) PNEUMOCOCCAL 2017 POLYSACCHARIDE VACCINE AGE 65 AND OVER INFLUENZA VACCINE 01/03/2018 Implants Device Identifier Shelf Expiration Date Model / Serial / Lot Implanted Type Area Manufactur er 08/02/2018 [id number] / / [id number] Device Vasclr Clsr Vasoactive Cardiovasc N/A: N/A Intstnl Peptd 6fr Angio-Seal - ular [id number] Implants Implanted: 10/13/2017 (Quantity not on file) 08/02/2018 [id number] / / [id number] Device Vasclr Clsr Vasoactive Cardiovasc N/A: N/A Intstnl Peptd 6fr Angio-Seal - ular [id number] Implants Implanted: 10/17/2017 (Quantity not on file) [id number] / / Catheter Angio Transformer Shop Supervisor Ii 5fr 100cm Surgical N/A: N/A [facility] Selc Braidd Torque Max - Implants; PERIPHERAL [id number] Expanders; INTERVENTI Implanted: 10/13/2017 (Quantity not Extenders; ON on file) Surgical VASCULAR Wires FABIO [id number] / / Catheter Thrmbtmy Neuron Max 088 Surgical N/A: N/A PENUMBRA Str 6fr 80x4cm - [id number] Implants; INC Implanted: 10/17/2017 (Quantity not Expanders; on file) Extenders; Surgical Wires [id number] / / Catheter Angiography Diag [facility] Surgical N/A: N/A [facility] Torque Transformer Shop Supervisor Ii 5fr 100cm - Implants; PERIPHERAL [id number] Expanders; INTERVENTI Implanted: 10/17/2017 (Quantity not Extenders; ON on file) Surgical VASCULAR Wires FABIO [id number] 150 / / Catheter Neurvas [place] 10 1lmn Surgical N/A: N/A [employer] Renfrcd 2.1-1.7fr Micr - [id number] Implants; [place] - Implanted: 10/17/2017 (Quantity not Expanders; VASCULAR on file) Extenders; Surgical Wires FC 12 30 3D / / Coil Axium [id number] Detachable Vascular N/A: N/A [employer] (Frame) 12 X 30 - [id number] Coil [place] - Implanted: 10/17/2017 (Quantity not VASCULAR on file) FC 10 40 3D / / Coil Axium [id number] Detachable Vascular N/A: N/A [employer] (Frame) 10 X 40 - [id number] Coil [place] - Implanted: 10/17/2017 (Quantity not [...] Staff: Hectoro kenia: LALO OLIVEIRA Performed by: Anesthesio kenia Pre-proced ure: patient identified , IV checked, [...] procedure well with no immediate complicati ons SD AN ELECTIVE Routine 10/17/2017 ENDOTRACHEAL AIRWAY 1:29 PM CDT Procedure Note - Lalo Oliveira MD - 10/17/2017 1:29 PM CDT Airway Date/Time: 10/17/2017 1:29 PM Performed by: LALO OLIVEIRA Authorized by: LALO OLIVEIRA Location: OR Urgency: Elective Difficult Airway: No Anesthesio logist: LALO OLIVEIRA Performed by: anesthesio kenia Preoxygena ludivina with 100% O2: Yes C-spine [...] 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 POC glucose 152 (H) 65 - 99 mg/dL [facility] DEPARTMENT OF Comment: PATHOLOGY AND [facility] Notified RN GENOMIC MEDICINE Meter ID: [id number] Elementary Substitute Teacher: Jennifer Berry Performing Organization Address [facility] Phone Number [facility] DEPARTMENT OF [address] [place] [address] PATHOLOGY AND GENOMIC MEDICINE * Estimated GFR (10/18/2017 12:44 AM CDT) GFR Non Af Amer >90 mL/min/1.73 m2 [facility] DEPARTMENT OF PATHOLOGY AND GENOMIC MEDICINE GFR Af Amer >90 mL/min/1.73 m2 [facility] DEPARTMENT OF Comment: PATHOLOGY AND Chronic kidney [...] Americans. Specimen Plasma specimen Performing Organization Address City/[facility] Phone Number [facility] DEPARTMENT [address] [address] PATHOLOGY AND GENOMIC MEDICINE * Phosphorus level (10/18/2017 12:44 AM CDT) Phosphorus 3.2 2.4 - 4.5 mg/dL [facility] DEPARTMENT OF PATHOLOGY AND GENOMIC MEDICINE Specimen Plasma specimen Performing Organization Address City/[facility] [place] [address] PATHOLOGY AND GENOMIC MEDICINE * Magnesium level (10/18/2017 12:44 AM CDT) Magnesium 1.8 1.6 - 2.4 mg/dL [facility] DEPARTMENT OF PATHOLOGY AND GENOMIC MEDICINE Specimen Plasma specimen Performing Organization Address City/[facility] [place] [address] PATHOLOGY AND GENOMIC MEDICINE * Ionized calcium (10/18/2017 12:44 AM CDT) pH 7.62 [facility] DEPARTMENT OF PATHOLOGY AND GENOMIC MEDICINE Ionized calcium 1.06 (L) 1.11 - 1.32 mmol/L [facility] DEPARTMENT OF PATHOLOGY AND GENOMIC MEDICINE Specimen Plasma specimen Performing Organization Address [facility] [place] [address] PATHOLOGY AND GENOMIC MEDICINE * Basic metabolic panel (10/18/2017 12:44 AM CDT) Sodium 140 135 - 148 mEq/L [facility] DEPARTMENT OF PATHOLOGY AND GENOMIC MEDICINE Potassium 3.6 3.5 - 5.0 mEq/L [facility] DEPARTMENT OF PATHOLOGY AND GENOMIC MEDICINE Chloride 105 98 - 112 mEq/L [facility] DEPARTMENT OF PATHOLOGY AND GENOMIC MEDICINE CO2 21 (L) 24 - 31 mEq/L [facility] DEPARTMENT OF PATHOLOGY AND GENOMIC MEDICINE Anion gap 14@ANIO 7 - 15 mEq/L [facility] DEPARTMENT OF PATHOLOGY AND GENOMIC MEDICINE BUN 6 (L) 8 - 23 mg/dL [facility] DEPARTMENT OF PATHOLOGY AND GENOMIC MEDICINE Creatinine 0.5 0.5 - 0.9 mg/dL [facility] DEPARTMENT OF PATHOLOGY AND GENOMIC MEDICINE Glucose 203 (H) 65 - 99 mg/dL [facility] DEPARTMENT OF PATHOLOGY AND GENOMIC MEDICINE Calcium 8.5 (L) 8.8 - 10.2 mg/dL [facility] DEPARTMENT OF PATHOLOGY AND GENOMIC MEDICINE Specimen Plasma specimen Performing Organization Address City/[facility] Phone Number [facility] [place] [address] PATHOLOGY AND GENOMIC MEDICINE * CBC with platelet and differential (10/18/2017 12:35 AM CDT) WBC 9.59 4.50 - 11.00 k/uL [facility] DEPARTMENT OF PATHOLOGY AND GENOMIC MEDICINE RBC 4.74 4.20 - 5.50 m/uL [facility] DEPARTMENT OF PATHOLOGY AND GENOMIC MEDICINE HGB 13.8 12.0 - 16.0 g/dL [facility] DEPARTMENT OF PATHOLOGY AND GENOMIC MEDICINE HCT 40.8 37.0 - 47.0 % [facility] DEPARTMENT OF PATHOLOGY AND GENOMIC MEDICINE MCV 86.1 82.0 - 100.0 fL [facility] DEPARTMENT OF PATHOLOGY AND GENOMIC MEDICINE MCH 29.1 27.0 - 34.0 pg [facility] DEPARTMENT OF PATHOLOGY AND GENOMIC MEDICINE MCHC 33.8 31.0 - 37.0 g/dL [facility] DEPARTMENT OF PATHOLOGY AND GENOMIC MEDICINE RDW - SD 41.1 37.0 - 55.0 fL [facility] DEPARTMENT OF PATHOLOGY AND GENOMIC MEDICINE MPV 10.1 8.8 - 13.2 fL [facility] DEPARTMENT OF PATHOLOGY AND GENOMIC MEDICINE Platelet count 247 150 - 400 k/uL [facility] DEPARTMENT OF PATHOLOGY AND GENOMIC MEDICINE Nucleated RBC 0.00 /100 WBC [facility] DEPARTMENT OF PATHOLOGY AND GENOMIC MEDICINE Neutrophils 92.3 (H) 39.0 - 69.0 % [facility] DEPARTMENT OF PATHOLOGY AND GENOMIC MEDICINE Lymphocytes 6.8 (L) 25.0 - 45.0 % [facility] DEPARTMENT OF PATHOLOGY AND GENOMIC MEDICINE Monocytes 0.4 0.0 - 10.0 % [facility] DEPARTMENT OF PATHOLOGY AND GENOMIC MEDICINE Eosinophils 0.0 0.0 - 5.0 % [facility] DEPARTMENT OF PATHOLOGY AND GENOMIC MEDICINE Basophils 0.1 0.0 - 1.0 % [facility] DEPARTMENT OF PATHOLOGY AND GENOMIC MEDICINE Immature granulocytes 0.4Comment: "Immature 0.0 - 1.0 % [facility] DEPARTMENT OF granulocytes" (promyelocytes, PATHOLOGY AND myelocytes, metamyelocytes) [facility] Specimen Blood Performing Organization Address City/State/Zipcode Phone Number [facility] DEPARTMENT OF [address] [place] [address] PATHOLOGY AND GENOMIC MEDICINE * IR Angiogram [...] artery. 2. No immediate complications were encountered. [facility]-[id number] Procedure Note [facility], Radiology Results Incoming - 10/17/2017 5:56 PM [...] artery. 2. No immediate complications were encountered. [facility]-[id number] Performing Organization Address City/[facility] Centercode Phone Number [facility] [address] [place] [address] * IR 3D Recon Slices Snapshots RDMPS (10/17/2017 4:40 PM CDT) Only the most recent of 2 results within the time period is included. Narrative Performed At Non-Reportable/No report needed. [facility] Performing Organization Address City/[facility] Phone Number [facility] [address] [place] [address] * IR Embolization Neurovascular (10/17/2017 4:40 PM [...] fistula using transvenous approach and coils and Jaden embolization material. 2. Posttreatment Selective right internal [...] and utilizing a right jugular venousapproach an [place] 10 microcatheter was navigated into the right hypoglossal canal. Cyndi CT with contrast demonstrated correct position of the microcatheter. Subsequently multiple axial coils and [place] 34 embolization material were utilized to completelydevascularize [...] the right hypoglossal canal, utilizing coils and Jaden embolization material. 2. Follow-up cerebral arch UM in 6 months is recommended. 3. No complications. [facility]-[id number] Procedure Note [facility], Radiology Results Incoming - 10/18/2017 5:47 PM [...] fistula using transvenous approach and coils and Jaden embolization material. 2. Posttreatment Selective right internal [...] utilizing a right jugular venous approach an [place] 10 microcatheter was navigated into the right hypoglossal canal. Cyndi CT with contrast demonstrated correct position of the microcatheter. Subsequently multiple axial coils and [place] 34 embolization material were utilized to completely [...] the right hypoglossal canal, utilizing coils and Bovill embolization material. 2. Follow-up cerebral arch UM in 6 months is recommended. 3. No complications. [facility]-[id number] Performing Organization Address City/State/Zipcode Phone Number [facility] [address] [place] [address] * IR Angiogram Cerebral (10/13/2017 12:55 PM CDT) Narrative Performed At CEREBRAL ARTERIOGRAM [facility] FLUORO TIME : 10.1 Minutes RADIATION EXPOSURE: [...] foraneurysms or arteriovenous malformations. 3. No complications. [facility]-[id number] Procedure Note [facility], Radiology Results Incoming - 10/13/2017 5:24 PM [...] aneurysms or arteriovenous malformations. 3. No complications. [facility]-[id number] Performing Organization Address City/State/Zipcode Phone Number [facility] [address] [place] [address] * CTA Head W Wo Contrast (10/06/2017 6:00 PM CDT) Narrative Performed At EXAMINATION: CT ANGIOGRAM HEAD W WO CONTRAST [facility] CLINICAL HISTORY: H57.11 Ocular painright eye, H57.11 [...] of report receipt will be tracked in [facility]. [id number] Procedure Note Interface, Radiology Results Incoming - [...] of report receipt will be tracked in [facility]. [id number] Performing Organization Address City/[facility]/Zipcode Phone Number [facility] [address] [place] [address] * POC creatinine (10/06/2017 5:33 PM CDT) POC creatinine 0.9 0.5 - 0.9 mg/dl [facility] DEPARTMENT OF PATHOLOGY AND GENOMIC MEDICINE Specimen Blood Performing Organization Address City/State/Zipcode Phone Number [address] [place] [address] PATHOLOGY AND GENOMIC MEDICINE after 08/06/2017 Insurance Payer Benefit Subscriber ID Type Phone Address Plan / Group BCBS BCBS xxxxxxxxxxxx PPO CHOICE PPO/IMAN BEL[employer] PPO Advance Directives Patient has advance care planning documents on file. For more information, ghada carvalho contact: Sebastian Fam [address] [place] [address]
[2018-08-07 12:27] VITALS: BP 133/70
== END | disposition home or self-care (01) ==
LOC: OR 09:29
PROVIDERS: ATTEND Ophthalmology
DX: H25.12 Age-related nuclear cataract, left eye (principal); I25.10 Atherosclerotic heart disease of native coronary artery without angina pectoris; I10 Essential (primary) hypertension; E11.9 Type 2 diabetes mellitus without complications; Z88.6 Allergy status to analgesic agent; Z79.82 Long term (current) use of aspirin; Z79.84 Long term (current) use of oral hypoglycemic drugs; Z95.5 Presence of coronary angioplasty implant and graft
CPT/HCPCS: 36415; 66984; 82948; J2250; V2632